=== PATIENT | female | born 1970 | race African-American/Black ===

== ENCOUNTER 2023-03-02 01:18 | Observation (INO) ==
--- NOTE | 2023-03-02 01:36 | DR.HEADACH ---
HPI Time Seen Time Seen by Provider: 03/02/23 01:36 Complaint/Symptoms Chief Complaint Doctors Comments: Patient states that she cooked yesterday for her grandchildren and took a nap in the evening.Patient does not recall what time she began her nap.Patient awoke and had slurred speech.She asked her son to call the ambulance.Patient had h/o covid-19 1 week ago. She presents with headache that generalized and aching.Patient states that she had to hold on to objects in her home to walk after she awoke and her hands were shaking. Patient denies: nausea,vomiting,chest pain,back pain abdominal pain,extremity paresthesias. PMH PMH Past Medical History: Asthma, Hypertension, Seizures and Sleep Apnea Past Surgical History: No Surgical History: No History Family History Family Medical History: Cancer and Hypertension Social History Do you use any recreational Drugs:: No ROS Review of Systems Constitutional: negative Fever Eyes: No Symptoms Reported ENTM: No Symptoms Reported Respiratoy: No Symptoms Reported Cardiovascular: negative Syncope Gastrointestinal/Abdominal: No Symptoms Reported Genitourinary: No Symptoms Reported Neurological: Headache Musculoskeletal: No Symptoms Reported Integumentary: No Symptoms Reported Hematologic/Lymphatic: No Symptoms Reported Endocrine: No Symptoms Reported Psychiatric: No Symptoms Reported All Other Systems: Reviewed and Negative PE Vital Signs Vitals: Temperature 98.1 F Pulse Rate [Bilateral Radial] 84 Pulse Rate 71 Respiratory Rate 20 Blood Pressure [Left Arm] 150/83 Blood Pressure 154/77 O2 Sat by Pulse Oximetry 97 General Limitations: No Limitations General Appearance: Alert, In No Apparent Distress and Obese Head Head Exam: Normal Inspection Eyes Eye exam: Normal Appearance, PERRL and EOMI Eyelids: Normal Inspection: Bilateral Pupils: Regular, Round: Bilateral Sclera/Conjunctival: Normal Inspection: Bilateral ENT ENT Exam: Normal Exam External Ear Exam: Normal External Inspection TM/Canal Exam: Bilateral: Normal Nose Exam: Normal Nose Exam Mouth Exam: Normal Inspection Teeth Exam: Normal Inspection Throat Exam: Normal Inspection Neck Neck Exam: Normal Inspection and Trachea Midline; negative Tenderness Chest Chest Inspection: Normal Inspection and Symmetric Chest Wall Rise Respiratory Respiratory Exam: Normal Lung Sounds Bilat; negative Accessory Muscle Use Respiratory Exam: Bilateral: Clear to Auscultation Cardiovascular Cardiovascular Exam: Regular Rate and Normal Rhythm Abdominal Exam Abdominal Exam: Normal Inspection and Normal Bowel Sounds Extremities Extremities Exam: Normal Inspection Back Back Exam: Normal Inspection Neurologic Neurological Exam: Alert, Oriented X3, CN II-XII Intact and Motor Sensory Deficit (WEAKNESS BLE (4/5)) Psychiatric Psychiatric Exam: Normal Affect and Normal Mood Skin Skin Exam: Warm, Dry, Intact and Normal Color MDM Differential Diagnosis Differential Diagnosis: Considerations may include:: Closed Head Injury, CVA and Intracerebral Hemorrhage Differential Diagnosis Comment: TIA,Infection,Pnuemonia,electrolyte abnormality COURSE Treatment Treatment: Patient was brought to a monitored room. Iv access was initiated and patioent was sent to Head CT w/o contrast.( 1:36) NIH stroke scale was 4 initially secondary to weakness in Bilateral lower extremities. Head CT w/o contrast di not reveal intracranial bleed.It did reveal Rt maxillary sinusitis. Rocephin 2g iv has been ordered. 04: 15 am Repeat NIH stroke scale evlaution revealed score of o. Informed patient of her test results. Patient had a pos d-dimer anc Chest CTA did not reveal PE or other acute process.Patient has stable CBC and stable CMP. Troponin # 1 is 5.2/EKG #1 revealed NSR with nonspecific t wave changes. Troponin #2 6.2/EKG #2 revealed NSR. 05:[address] Blake who will admit patient to his service to treat for :TIA/Rt Maxillary Sinusitis/ Acute hypoxemia. Patient's ABG revealed PH 7.39/PC02 60.0/ P02 47.0/02 sat 82.0 ( on RA). Patient states that she has a h/o asthma and sleep apnea. She was diagnosed with sleep apnea 2 yrs ago and was not able to get the supplies to use at night. Patient has been stable in the ED. [facility]OR Labs Reviewed Laboratory Results Reviewed?: Yes Result Diagrams: 03/02/23 01:58 03/02/23 01:58 Laboratory: WBC 8.2 X10^3/uL (3.6-10.0) 03/02/23 01:58 RBC 4.70 X10^6/uL (3.5-5.4) 03/02/23 01:58 Hgb 13.9 g/dL (12.0-16.0) 03/02/23 01:58 Hct 41.5 % (36.0-47.0) 03/02/23 01:58 MCV 88.4 fL (80.0-100.0) 03/02/23 01:58 MCH 29.7 pg (27.0-34.0) 03/02/23 01:58 MCHC 33.6 g/dL (33.0-35.0) 03/02/23 01:58 RDW 13.4 % (11.6-16.5) 03/02/23 01:58 Plt Count 288 X10^3/uL (150.0-450.0) 03/02/23 01:58 MPV 7.5 fL (7.4-11.0) 03/02/23 01:58 Neut % (Auto) 52.5 % (42.0-75.0) 03/02/23 01:58 Lymph % (Auto) 38.6 % (21.0-51.0) 03/02/23 01:58 [place] % (Auto) 6.8 % (0.0-13.0) 03/02/23 01:58 Eos % (Auto) 1.3 % (0.9-2.9) 03/02/23 01:58 Baso % (Auto) 0.8 % (0.2-1.0) 03/02/23 01:58 Neut # (Auto) 4.3 x10^3/uL (2.2-4.8) 03/02/23 01:58 Lymph # (Auto) 3.2 X10^3/uL (1.3-2.9) H 03/02/23 01:58 [place] # (Auto) 0.6 x10^3/uL (0.3-0.8) 03/02/23 01:58 Eos # (Auto) 0.1 x10^3/uL (0.0-0.2) 03/02/23 01:58 Baso # (Auto) 0.1 X10^3/uL (0.0-0.1) 03/02/23 01:58 Absolute Nucleated RBC 0.0 /100WBC 03/02/23 01:58 PT 12.3 SECONDS (11.8-14.3) 03/02/23 01:58 INR Target Range - 03/02/23 01:58 INR 0.93 (0.8-1.3) 03/02/23 01:58 APTT 26.6 SECONDS (22.9-36.5) 03/02/23 01:58 PTT Comment - 03/02/23 01:58 D-Dimer 1.57 ug/ml (0.0-0.57) H 03/02/23 01:58 Sample Site R rad 03/02/23 02:11 ABG pH 7.390 (7.35-7.45) 03/02/23 02:11 ABG pCO2 60.0 mmHg (35.0-45.0) H* 03/02/23 02:11 ABG pO2 47.0 mmHg (80.0-100.0) L* 03/02/23 02:11 ABG HCO3 36.3 mmol/L (22-26) H* 03/02/23 02:11 ABG O2 Saturation 82.0 % (90-100) L* 03/02/23 02:11 ABG Base Excess 9.3 mmol/L (-2.0-2.0) H 03/02/23 02:11 Jorje Test Pos 03/02/23 02:11 A-a Gradient 28.0 mmHg 03/02/23 02:11 FiO2 21.0 03/02/23 02:11 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/02/23 02:11 Sodium 141 mmol/L (136-145) 03/02/23 01:58 Corrected Sodium 142 mmol/L (136-145) 03/02/23 01:58 Potassium 3.6 mmol/L (3.5-5.1) 03/02/23 01:58 Chloride 101 mmol/L (98-107) 03/02/23 01:58 Carbon Dioxide 37.2 mmol/L (21-32) H 03/02/23 01:58 BUN 11 mg/dL (7-18) 03/02/23 01:58 Creatinine 0.89 mg/dL (0.55-1.02) 03/02/23 01:58 Est GFR (MDRD) Af Amer > 60 (>60) 03/02/23 01:58 Est GFR (MDRD) Non-Af > 60 (>60) 03/02/23 01:58 Glucose 154 mg/dL (65-99) H 03/02/23 01:58 Calcium 8.5 mg/dL (8.5-10.1) 03/02/23 01:58 Corrected Calcium TNP 03/02/23 01:58 Total Bilirubin 0.30 mg/dL (0.2-1.0) 03/02/23 01:58 AST 15 Units/L (15-37) 03/02/23 01:58 ALT 21 Units/L (12-78) 03/02/23 01:58 Alkaline Phosphatase 93 Units/L (46-116) 03/02/23 01:58 Creatine Kinase 136 Units/L (26-192) 03/02/23 03:54 Troponin I High Sens 6.2 ng/L (4.0-60.0) 03/02/23 03:54 B-Natriuretic Peptide < 5.0 pg/mL (0-79) 03/02/23 01:58 Total Protein 8.3 g/dL (6.4-8.2) H 03/02/23 01:58 Albumin 3.4 g/dL (3.4-5.0) 03/02/23 01:58 Globulin 4.9 g/dL (2.5-4.5) H 03/02/23 01:58 Albumin/Globulin Ratio 0.7 Ratio (1.1-2.1) L 03/02/23 01:58 Specimen Type Clean catch urine 03/02/23 02:54 Urine Color Yellow (YELLOW) 03/02/23 02:54 Urine Appearance Clear (CLEAR) 03/02/23 02:54 Urine pH 6.0 (5.0 - 8.0) 03/02/23 02:54 Ur Specific [place] 1.025 (1.000-1.030) 03/02/23 02:54 Urine Protein 1+ (NEGATIVE) 03/02/23 02:54 Urine Glucose (UA) Negative (NEGATIVE) 03/02/23 02:54 Urine Ketones Negative (NEGATIVE) 03/02/23 02:54 Urine Blood 1+ (NEGATIVE) 03/02/23 02:54 Urine Nitrite Negative (NEGATIVE) 03/02/23 02:54 Urine Bilirubin Negative (NEGATIVE) 03/02/23 02:54 Urine Urobilinogen Normal (NORMAL) 03/02/23 02:54 Ur Leukocyte Esterase 1+ (NEGATIVE) 03/02/23 02:54 Urine RBC 0-2 /HPF (0-3) 03/02/23 02:54 Urine WBC 0-2 /HPF (0-5) 03/02/23 02:54 Ur Squamous Epith Cells Few /HPF (NEGATIVE) 03/02/23 02:54 Urine Bacteria Trace /HPF (NEGATIVE) 03/02/23 02:54 Ur Culture Indicated? No/not indicated 03/02/23 02:54 Urine Opiates Screen Negative (NEG=<300) 03/02/23 02:54 Urine Methadone Screen Negative (NEG=<300) 03/02/23 02:54 Ur Barbiturates Screen Negative (NEG=<200) 03/02/23 02:54 Ur Phencyclidine Scrn Negative (NEG=<25) 03/02/23 02:54 Ur Amphetamines Screen Negative (NEG=<1000) 03/02/23 02:54 U Benzodiazepines Scrn Negative (NEG=<200) 03/02/23 02:54 Urine Cocaine Screen Negative (NEG=<300) 03/02/23 02:54 U Marijuana (THC) Screen Positive (NEG=<50) A 03/02/23 02:54 SARS-CoV-2 (PCR) Negative (NEGATIVE) 03/02/23 01:41 Influenza Type A (PCR) Negative (NEGATIVE) 03/02/23 01:41 Influenza Type B (PCR) Negative (NEGATIVE) 03/02/23 01:41 RSV (PCR) Negative (NEGATIVE) 03/02/23 01:41 XRAY XRAY Interpreted by: Radiologist X-ray Results: PROCEDURE: CT Head without Contrast . HISTORY: Slurred speech and lower extremity weakness. TECHNIQUE: Axial images were performed through the head without the administration of IV contrast with multiplanar reformations . Dose reduction techniques including Automated Exposure Control (AEC) and adjustment of mA and kV were utilized . COMPARISON: None . TECHNICAL QUALITY: Satisfactory . FINDINGS: Brain shows no mass, hemorrhage, or acute stroke. Ventricles are normal size for patient's age. No acute skull or scalp abnormality. Scattered [id number] inflammatory mucosal changes paranasal sinuses with air-fluid level right maxillary sinus. Clear mastoids. IMPRESSION: 1. Normal CT scan of the brain. 2. Sinusitis. Electronically signed by: Delmer Cortes (March 02, 2023 03:13:29) PROCEDURE: Chest X-ray 1 View . HISTORY: Hypoxia. TECHNIQUE: AP view . COMPARISON: None . TECHNICAL QUALITY: Satisfactory . FINDINGS: Heart size upper limits of normal. Mediastinum and hilar regions show no masses or lymphadenopathy . Normal central vascularity . No pulmonary consolidation, masses, pleural fluid, or pneumothorax . No acute bony abnormality . IMPRESSION: Heart size upper limits of normal with no other evidence of active disease. Electronically signed by: Delmer Cortes (March 02, 2023 02:32:20) PROCEDURE: CTA Chest . HISTORY: Dyspnea. TECHNIQUE: Axial images were performed through the chest with the administration of IV contrast with multiplanar reformations . 3D and MIPS reconstructions were performed and reviewed. Dose reduction techniques including Automated Exposure Control (AEC) and adjustment of mA and kV were utilized . COMPARISON: None . TECHNICAL QUALITY: Satisfactory . FINDINGS: Mild atherosclerosis thoracic aorta with tortuosity and no aneurysm or dissection. Limited opacification of the pulmonary arterial system with contrast with the main pulmonary artery measuring 178 Hounsfield units with no obvious central clot. Mediastinum and hilar regions show no masses or lymphadenopathy. Normal size heart with no pericardial fluid. No pulmonary consolidation, masses, or pleural fluid. Visualized upper abdomen shows previous cholecystectomy. No acute bony abnormality. IMPRESSION: 1. Limited opacification of the pulmonary arterial system with contrast with no obvious central clot. 2. No dissection. 3. No pulmonary consolidation. Electronically signed by: Delmer Cortes (March 02, 2023 04:48:31) EKG Compared to prior EKG Dated: 03/02/23 Rate: 79 Media: Normal Rhythm: NSR ST: Nonsp (Nonspecific T wave abnormality) Opioid Opioid Risk Tool Age ([place] if 16-45): No History of Preadolescent Sexual Abuse: No Total: 0 Total Score Risk Category: Low Risk Copyright: Zeb FELDER predicting aberrant behaviors Discharge Plan Diagnosis Discharge Problem: TIA (transient ischemic attack), Right maxillary sinusitis, Hypoxemia Discharge Plan Patient Disposition: ADMITTED INPATIENT Condition: Stable Prescriptions: No Action phenytoin sodium extended [Dilantin Extended] 100 mg capsule 100 mg PO BID hydrochlorothiazide 25 mg tablet 25 mg PO QDAY albuterol sulfate 90 mcg/actuation HFA aerosol inhaler 1 puff inhalation Q8H PRN (Reason: shortness of breath or wheezing) ibuprofen 800 MG tablet 800 mg PO DAILY PRN (Reason: Pain/Inflammation) Qty: 30 0RF Health Concerns: Post Hospitalization: new medications and changes needed to prevent readmission or further decline. Pt educated and given instructions on all concerns. Plan of Treatment: ADMIT OBSERVATION Orders to Discharge Patient Discharge Orders: Transfer (Routine); Ordered 03/02/23 Ordered By: Annita Quinn Follow ups/Referrals Follow ups/Referrals: NARCISO BENEDICT [Primary Care Provider] - 3 days ADDITIONAL NOTES Additional Notes Additional Notes: EKG #2: RATE 70, Media normal, Rhythm NSR
[2023-03-02 02:10] LABS: BASOPHILS # (AUTO) 0.1 X10^3/uL (0.0-0.1); BASOPHILS % (AUTO) 0.8 % (0.2-1.0); EOSINOPHILS # (AUTO) 0.1 x10^3/uL (0.0-0.2); EOSINOPHILS % (AUTO) 1.3 % (0.9-2.9); HEMATOCRIT 41.5 % (36.0-47.0); HEMOGLOBIN 13.9 g/dL (12.0-16.0); LYMPHOCYTES # (AUTO) 3.2 X10^3/uL (1.3-2.9); LYMPHOCYTES % (AUTO) 38.6 % (21.0-51.0); MEAN CORPUSCULAR HEMOGLOBIN 29.7 pg (27.0-34.0); MEAN CORPUSCULAR HGB CONC 33.6 g/dL (33.0-35.0); MEAN CORPUSCULAR VOLUME 88.4 fL (80.0-100.0); MEAN PLATELET VOLUME 7.5 fL (7.4-11.0); MONOCYTES # (AUTO) 0.6 x10^3/uL (0.3-0.8); MONOCYTES % (AUTO) 6.8 % (0.0-13.0); NEUTROPHILS # (AUTO) 4.3 x10^3/uL (2.2-4.8); NEUTROPHILS % (AUTO) 52.5 % (42.0-75.0); PLATELET COUNT 288 X10^3/uL (150.0-450.0); RED CELL DISTRIBUTION WIDTH 13.4 % (11.6-16.5); WHITE BLOOD COUNT 8.2 X10^3/uL (3.6-10.0)
[2023-03-02 02:17] LABS: ABG BASE EXCESS 9.3 mmol/L (-2.0-2.0)
[2023-03-02 02:19] LABS: ALANINE AMINOTRANSFERASE 21 Units/L (12-78); ALBUMIN 3.4 g/dL (3.4-5.0); ALKALINE PHOSPHATASE 93 Units/L (46-116); ASPARTATE AMINO TRANSFERASE 15 Units/L (15-37); BLOOD UREA NITROGEN 11 mg/dL (7-18); CALCIUM 8.5 mg/dL (8.5-10.1); CARBON DIOXIDE 37.2 mmol/L (21-32); CHLORIDE 101 mmol/L (98-107); COR NA(FOR HYPERGLY) 142 mmol/L (136-145); CREATININE 0.89 mg/dL (0.55-1.02); GLUCOSE 154 mg/dL (65-99); POTASSIUM 3.6 mmol/L (3.5-5.1); SODIUM 141 mmol/L (136-145); TOTAL PROTEIN 8.3 g/dL (6.4-8.2); eGFR NON BLACK RACES > 60 (>60)
[2023-03-02 02:19] LABS: ABG ALLEN TEST POS; ABG HCO3 36.3 mmol/L (22-26)
--- NOTE | 2023-03-02 02:33 | RAD ---
PROCEDURE: Chest X-ray 1 View .HISTORY: Hypoxia.TECHNIQUE: AP view .COMPARISON: None .TECHNICAL QUALITY: Satisfactory .FINDINGS:Heart size upper limits of normal.Mediastinum and hilar regions show no masses or lymphadenopathy .Normal central vascularity .No pulmonary consolidation, masses, pleural fluid, or pneumothorax .No acute bony abnormality .IMPRESSION:Heart size upper limits of normal with no other evidence of active disease.Electronically signed by: Delmer Cortes (March 02, 2023 02:32:20)
--- NOTE | 2023-03-02 02:44 | EKG ---
Test Reason : weakness Blood Pressure : */* mmHG Vent. Rate : 79 BPM Atrial Rate : 79 BPM P-R Int : 170 ms QRS Dur : 86 ms QT Int : 396 ms P-R-T Axes : 29 13 8 degrees QTc Int : 454 ms Normal sinus rhythm Minimal voltage criteria for LVH, may be normal variant ( R in aVL ) Nonspecific T wave abnormality Abnormal ECG No previous ECGs available Confirmed by George Danielson ([id number]) on 03/02/2023 7:42:26 PM Referred By: Confirmed By: George Danielson
[2023-03-02 02:52] LABS: INR 0.93 (0.8-1.3)
[2023-03-02 03:03] LABS: BILIRUBIN,URINE NEGATIVE (NEGATIVE); BLOOD/HEMOGLOBIN,URINE 1+ (NEGATIVE); GLUCOSE, URINE NEGATIVE (NEGATIVE); KETONES,URINE NEGATIVE (NEGATIVE); LEUKOCYTE ESTERASE ,URINE 1+ (NEGATIVE); NITRITES,URINE NEGATIVE (NEGATIVE); PROTEIN,URINE 1+ (NEGATIVE); UROBILINOGEN,URINE NORMAL (NORMAL)
[2023-03-02 03:12] LABS: APPEARANCE,URINE CLEAR (CLEAR); COLOR,URINE YELLOW (YELLOW)
[2023-03-02 03:13] LABS: BACTERIA,URINE TRACE /HPF (NEGATIVE); RBC,URINE 0-2 /HPF (0-3); SQUAMOUS EPITHELIAL CELL,UR FEW /HPF (NEGATIVE)
--- NOTE | 2023-03-02 03:14 | CT ---
PROCEDURE: CT Head without Contrast .HISTORY: Slurred speech and lower extremity weakness.TECHNIQUE: Axial images were performed through the head without the administration of IV contrast with multiplanar reformations . Dose reduction techniques including Automated Exposure Control (AEC) and adjustment of mA and kV were utilized .COMPARISON: None .TECHNICAL QUALITY: Satisfactory .FINDINGS:Brain shows no mass, hemorrhage, or acute stroke.Ventricles are normal size for patient's age.No acute skull or scalp abnormality.Scattered [id number] inflammatory mucosal changes paranasal sinuses with air-fluid level right maxillary sinus. Clear mastoids.IMPRESSION:1. Normal CT scan of the brain.2. Sinusitis.Electronically signed by: Delmer Cortes (March 02, 2023 03:13:29)
--- NOTE | 2023-03-02 03:38 | EKG ---
Test Reason : SHORTNESS OF BREATH Blood Pressure : */* mmHG Vent. Rate : 70 BPM Atrial Rate : 70 BPM P-R Int : 178 ms QRS Dur : 86 ms QT Int : 404 ms P-R-T Axes : 28 15 41 degrees QTc Int : 436 ms Normal sinus rhythm Normal ECG When compared with ECG of 02-MAR-2023 02:39, (Unconfirmed) Nonspecific T wave abnormality, improved in Inferior leads Nonspecific T wave abnormality, improved in Anterior leads Confirmed by George Danielson ([id number]) on 03/02/2023 7:42:09 PM Referred By: Confirmed By: George Danielson
--- NOTE | 2023-03-02 04:49 | CT ---
PROCEDURE: CTA Chest .HISTORY: Dyspnea.TECHNIQUE: Axial images were performed through the chest with the administration of IV contrast with multiplanar reformations . 3D and MIPS reconstructions were performed and reviewed. Dose reduction techniques including Automated Exposure Control (AEC) and adjustment of mA and kV were utilized .COMPARISON: None .TECHNICAL QUALITY: Satisfactory .FINDINGS:Mild atherosclerosis thoracic aorta with tortuosity and no aneurysm or dissection.Limited opacification of the pulmonary arterial system with contrast with the main pulmonary artery measuring 178 Hounsfield units with no obvious central clot.Mediastinum and hilar regions show no masses or lymphadenopathy.Normal size heart with no pericardial fluid.No pulmonary consolidation, masses, or pleural fluid.Visualized upper abdomen shows previous cholecystectomy.No acute bony abnormality.IMPRESSION:1. Limited opacification of the pulmonary arterial system with contrast with no obvious central clot.2. No dissection.3. No pulmonary consolidation.Electronically signed by: Delmer Cortes (March 02, 2023 04:48:31)
[2023-03-02] MEDS ORDERED: ROCEPHIN VIAL 2 GRAMS 2 G in NS 100 ML IV 100 ML IV SCH ×2 (06:53→08:00)
[2023-03-02] MEDS ORDERED: ROCEPHIN VIAL 2 GRAMS ONE (06:55)
[2023-03-02] MEDS ORDERED: NS 100 ML IV 200 ML ONE (06:56)
[2023-03-02] MEDS ORDERED: NS 250 ML IV 250 ML IV ONE (07:02)
[2023-03-02] MEDS ORDERED: NS 100 ML IV 100 ML IV ONE (07:13)
[2023-03-02] MEDS ORDERED: MOTRIN TAB 800 MG PO PRN (08:00)
[2023-03-02] MEDS ORDERED: VENTOLIN or PROAIR HFA IN PRN (08:00)
[2023-03-02] MEDS: DILANTIN CAP 100 MG EXT REL PO SCH ×2 (08:59→20:41)
[2023-03-02] MEDS: HYDROCHLOROTHIAZIDE 25 MG TAB PO SCH (08:59)
[2023-03-02] MEDS ORDERED: K-DUR TAB 20 MEQ PO PRN (10:25)
[2023-03-02] MEDS ORDERED: K-RIDER 10 MEQ/NS 100 ML 10 MEQ/100 ML BAG IV PRN (10:25)
[2023-03-02] MEDS ORDERED: POTASSIUM CHL 60 MEQ/NS 0.45% 500 ML IV PRN (10:25)
[2023-03-02] MEDS ORDERED: KLOR-CON PO PRN (10:25)
[2023-03-02] MEDS ORDERED: MICRO K EXTEN CAP 10 MEQ PO PRN (10:25)
[2023-03-02] MEDS ORDERED: POTASSIUM CHL 40 MEQ/NS 0.45% 500 ML IV PRN (10:25)
[2023-03-02] MEDS ORDERED: POTASSIUM CHLORIDE LIQ 20 MEQ UDC PO PRN (10:25)
[2023-03-02] MEDS: MAGNESIUM SULFATE 1 GRAM/100 mL PREMIX 1 G/100 ML BAG IV PRN ×2 (11:20→19:00)
--- NOTE | 2023-03-02 13:42 | DR.H&P ---
H&P - History & Physical for Day of: H&P Date: 03/02/23 - Chief Complaint Chief Complaint: ONSET SLURRED SPEECH, IMPAIRED GAIT - History of Present Illness History of Present Illness: Patient states that she cooked yesterday for her grandchildren and took a nap in the evening.Patient does not recall what time she began her nap.Patient awoke and had slurred speech.She asked her son to call the ambulance.Patient had h/o covid-19 1 week ago. She presents with headache that generalized and aching.Patient states that she had to hold on to objects in her home to walk after she awoke and her hands were shaking. Patient denies: nausea,vomiting,chest pain,back pain abdominal pain,extremity paresthesias. - Past Medical History Past Medical History: Hypertension, Seizures, Asthma, Sleep Apnea - Past Surgical History Surgical History: No History - Family History Family Medical History: Diabetes Mellitus, [place], Hypertension - Social History Does patient currently use any type of tobacco product: Yes Have you used tobacco products in the last 12 months: Yes Type of Tobacco Use: Cigars Does any household member use tobacco: Yes Alcohol Use: Occasionally Drug Use: None - Medications Home Medications: lisinopril Allergy (Unknown, Verified 10/09/22 14:39) Swollen lips - Review of Systems Constitutional: Weakness Eyes: No Symptoms Reported ENT: Nose Congestion Respiratory: No Symptoms Reported Cardiovascular: Edema Gastrointestinal: No Symptoms Reported Genitourinary: No Symptoms Reported Musculoskeletal: No Symptoms Reported Skin: No Symptoms Reported Neurological: Change in Speech - Physical Exam Vital Signs: Temperature 97.4 F Pulse Rate [Bilateral Radial] 82 Pulse Rate 71 Respiratory Rate 20 Blood Pressure [Left Arm] 144/65 Blood Pressure 154/77 O2 Sat by Pulse Oximetry 94 Oriented: Normal Eyes: Normal Ear: Normal Nose: Normal Throat: Exudate Respiratory: RLL Diminished, LLL Diminished Cardiovascular: Normal, Edema : Normal Auscultation: Bowel Sounds: Normal Palpation: Normal Tenderness: Normal Skin: Normal Musculoskeletal: negative: Motor Deficit, Sensory Deficit Psychiatric: Normal Mood Description: Calm Speech Pattern: Clear, Appropriate. negative: Slurred - Assessment/Plan (1) TIA (transient ischemic attack) Status: Acute Plan: ADMIT, CT HEAD ON ADMISSION. ASPIRIN, STATIN AND BP CONTROL STARTED. CAROTID US AND MRI BRAIN ORDERED FOR AM. FLP IN THE AM. BP CONTROL AND CARDIAC MONITORING. PHYSICAL THERAPY EVALUATION (2) Right maxillary sinusitis Status: Acute (3) Hypertension Status: None (4) Morbid obesity Status: Acute - Allergies Allergies/Adverse Reactions: Allergies Allergy/AdvReac Type Severity Reaction Status Date / Time lisinopril Allergy Unknown Swollen Verified 10/09/22 14:39 lips
[2023-03-02] MEDS: ROCEPHIN VIAL 1 GRAM 1 G in NS 100 ML IV 100 ML IV SCH (14:42)
[2023-03-02] MEDS: CLARITIN PO SCH (15:00)
[2023-03-02] MEDS: ASPIRIN EC 81 MG PO SCH (15:00)
[2023-03-02] MEDS: COZAAR PO SCH (15:00)
[2023-03-02] MEDS: CRESTOR TAB 10 MG PO SCH (20:41)
[2023-03-03] MEDS ORDERED: NS 250 ML IV 250 ML IV ONE (02:42)
--- NOTE | 2023-03-03 05:32 | EKG ---
Test Reason : TIA Blood Pressure : */* mmHG Vent. Rate : 79 BPM Atrial Rate : 79 BPM P-R Int : 166 ms QRS Dur : 82 ms QT Int : 420 ms P-R-T Axes : 35 26 56 degrees QTc Int : 481 ms Normal sinus rhythm Prolonged QT Abnormal ECG When compared with ECG of 02-MAR-2023 03:36, No significant change was found Confirmed by George Danielson ([id number]) on 03/04/2023 8:25:38 AM Referred By: Confirmed By: George Danielson
[2023-03-03 06:00] LABS: BASOPHILS # (AUTO) 0.1 X10^3/uL (0.0-0.1); BASOPHILS % (AUTO) 1.3 % (0.2-1.0); EOSINOPHILS # (AUTO) 0.2 x10^3/uL (0.0-0.2); EOSINOPHILS % (AUTO) 2.5 % (0.9-2.9); HEMATOCRIT 37.1 % (36.0-47.0); HEMOGLOBIN 12.5 g/dL (12.0-16.0); LYMPHOCYTES # (AUTO) 2.5 X10^3/uL (1.3-2.9); LYMPHOCYTES % (AUTO) 35.7 % (21.0-51.0); MEAN CORPUSCULAR HGB CONC 33.8 g/dL (33.0-35.0); MEAN CORPUSCULAR VOLUME 88.6 fL (80.0-100.0); MEAN PLATELET VOLUME 8.6 fL (7.4-11.0); MONOCYTES # (AUTO) 0.6 x10^3/uL (0.3-0.8); MONOCYTES % (AUTO) 8.1 % (0.0-13.0); NEUTROPHILS # (AUTO) 3.7 x10^3/uL (2.2-4.8); NEUTROPHILS % (AUTO) 52.4 % (42.0-75.0); PLATELET COUNT 238 X10^3/uL (150.0-450.0); RED BLOOD COUNT 4.19 X10^6/uL (3.5-5.4); RED CELL DISTRIBUTION WIDTH 13.2 % (11.6-16.5); WHITE BLOOD COUNT 7.1 X10^3/uL (3.6-10.0)
[2023-03-03 06:15] LABS: ALANINE AMINOTRANSFERASE 19 Units/L (12-78); ALBUMIN 2.8 g/dL (3.4-5.0); ALKALINE PHOSPHATASE 77 Units/L (46-116); ASPARTATE AMINO TRANSFERASE 11 Units/L (15-37); BLOOD UREA NITROGEN 13 mg/dL (7-18); CALCIUM 8.2 mg/dL (8.5-10.1); CARBON DIOXIDE 34.1 mmol/L (21-32); CHLORIDE 105 mmol/L (98-107); CHOL/HDL RATIO 3.7 (0.0-5.0); CHOLESTEROL 194 mg/dL (0-200); COR CA(FOR HYPOALB) 9.2 mg/dL (8.5-10.1); CREATININE 0.77 mg/dL (0.55-1.02); GLUCOSE 110 mg/dL (65-99); HDL CHOLESTEROL 52 mg/dL (40-60); POTASSIUM 4.2 mmol/L (3.5-5.1); SODIUM 141 mmol/L (136-145); TRIGLYCERIDES 79 mg/dL (0-150); eGFR NON BLACK RACES > 60 (>60)
[2023-03-03] MEDS: ROCEPHIN VIAL 1 GRAM 1 G in NS 100 ML IV 100 ML IV SCH (09:14)
[2023-03-03] MEDS: CLARITIN PO SCH (09:15)
[2023-03-03] MEDS: DILANTIN CAP 100 MG EXT REL PO SCH ×2 (09:15→20:35)
[2023-03-03] MEDS: HYDROCHLOROTHIAZIDE 25 MG TAB PO SCH (09:15)
[2023-03-03] MEDS: ASPIRIN EC 81 MG PO SCH (09:15)
[2023-03-03] MEDS: COZAAR PO SCH (09:15)
[2023-03-03] MEDS: LOVENOX INJ 40 MG SYR SC SCH (09:15)
[2023-03-03 14:19] LABS: ABG BASE EXCESS 11.6 mmol/L (-2.0-2.0)
[2023-03-03 14:20] LABS: ABG ALLEN TEST POS; ABG HCO3 38.3 mmol/L (22-26)
[2023-03-03 14:40] VITALS: BMI 51.0
--- NOTE | 2023-03-03 20:23 | VAS ---
HISTORYTIASTUDYCAROTID USCOMPARISONNo relevant prior studies available.TECHNIQUEDuplex ultrasound scan of the bilateral carotid and vertebral arteries combining grayscale, color Doppler and spectral waveform analysis.FINDINGSRight common carotid artery: Unremarkable. No occlusion or stenosis. Waveforms are normal.Peak systolic velocity in the proximal CCA is 102.5 cm/sec.Right internal carotid artery: Unremarkable. No occlusion or stenosis. Waveforms are normal. Peak systolic velocity in the proximal ICA is 110.21 cm/sec.Right ICA/CCA ratio: Within normal limits; 1.07.Right external carotid artery: No significant stenosis in the origin.Right vertebral artery: Unremarkable. Antegrade flow.Left common carotid artery: Unremarkable. No occlusion or stenosis. Waveforms are normal. Peak systolic velocity in the proximal CCA is 108.75 cm/sec.Left internal carotid artery: Unremarkable. No occlusion or stenosis. Waveforms are normal. Peak systolic velocity in the mid ICA is 115.4 cm/sec.Left ICA/CCA ratio: Within normal limits; 1.06.Left external carotid artery: No stenosis in the origin.Left vertebral artery: Unremarkable. Antegrade flow.IMPRESSIONNo clinically significant diameter stenosis in the internal carotid arteries based on flow velocity criteria.REFERENCES:SRU CRITERIA. The degree of internal carotid artery stenosis is based on criteria defined by the Society of Radiologists in Ultrasound (SRU).--Normal is no stenosis (ICA PSV is <125 cm/sec, ICA/CCA PSV ratio <2.0).--Mild is less than 50% stenosis (ICA PSV is <125 cm/sec, plaque/intimal thickening visible, ICA/CCA PSV ratio <2.0 and ICA EDV <40 cm/sec).--Moderate is 50-69% stenosis (ICA PSV is 125-230 cm/sec and plaque is visible. ICA/CCA PSV ratio of 2.0-4.0. ICA EDV is 40-100 cm/sec).--Severe is greater than 69% stenosis to near occlusion (ICA PSV is >230 cm/sec, visible plaque/luminal narrowing, ICA/CCA >4.0, ICA EDV >100 cm/sec).--Near occlusion is a markedly narrowed lumen.--Total occlusion is no detectable patent lumen.Electronically signed by: Navin Boswell (March 03, 2023 20:22:10)
[2023-03-03] MEDS: CRESTOR TAB 10 MG PO SCH (20:35)
[2023-03-03] MEDS: MAGNESIUM SULFATE 1 GRAM/100 mL PREMIX 1 G/100 ML BAG IV PRN ×2 (20:36→22:13)
--- NOTE | 2023-03-04 04:46 | RAD ---
PROCEDURE: Chest X-ray 1 View .HISTORY: COPD .TECHNIQUE: AP portable done at 4:18 a.m..COMPARISON: 03/02/2023.TECHNICAL QUALITY: Satisfactory .FINDINGS:Normal size heart .Mediastinum and hilar regions show no masses or lymphadenopathy .Normal central vascularity .No pulmonary consolidation, masses, pleural fluid, or pneumothorax .No acute bony abnormality .IMPRESSION:No active cardiopulmonary disease .Electronically signed by: Delmer Cortes (March 04, 2023 04:45:12)
[2023-03-04 06:17] LABS: BASOPHILS # (AUTO) 0.1 X10^3/uL (0.0-0.1); BASOPHILS % (AUTO) 1.2 % (0.2-1.0); EOSINOPHILS # (AUTO) 0.2 x10^3/uL (0.0-0.2); EOSINOPHILS % (AUTO) 2.7 % (0.9-2.9); HEMATOCRIT 38.7 % (36.0-47.0); LYMPHOCYTES # (AUTO) 2.3 X10^3/uL (1.3-2.9); LYMPHOCYTES % (AUTO) 35.2 % (21.0-51.0); MEAN CORPUSCULAR HEMOGLOBIN 30.1 pg (27.0-34.0); MEAN CORPUSCULAR HGB CONC 33.7 g/dL (33.0-35.0); MEAN CORPUSCULAR VOLUME 89.4 fL (80.0-100.0); MEAN PLATELET VOLUME 8.5 fL (7.4-11.0); MONOCYTES # (AUTO) 0.5 x10^3/uL (0.3-0.8); MONOCYTES % (AUTO) 7.3 % (0.0-13.0); NEUTROPHILS # (AUTO) 3.5 x10^3/uL (2.2-4.8); NEUTROPHILS % (AUTO) 53.6 % (42.0-75.0); PLATELET COUNT 227 X10^3/uL (150.0-450.0); RED BLOOD COUNT 4.33 X10^6/uL (3.5-5.4); RED CELL DISTRIBUTION WIDTH 12.9 % (11.6-16.5); WHITE BLOOD COUNT 6.6 X10^3/uL (3.6-10.0)
[2023-03-04 06:35] LABS: ALANINE AMINOTRANSFERASE 13 Units/L (12-78); ALBUMIN 2.8 g/dL (3.4-5.0); ALKALINE PHOSPHATASE 81 Units/L (46-116); ASPARTATE AMINO TRANSFERASE 21 Units/L (15-37); BLOOD UREA NITROGEN 14 mg/dL (7-18); CALCIUM 8.6 mg/dL (8.5-10.1); CARBON DIOXIDE 34.1 mmol/L (21-32); CHLORIDE 102 mmol/L (98-107); COR CA(FOR HYPOALB) 9.6 mg/dL (8.5-10.1); CREATININE 0.66 mg/dL (0.55-1.02); GLUCOSE 102 mg/dL (65-99); SODIUM 139 mmol/L (136-145); TOTAL PROTEIN 7.3 g/dL (6.4-8.2); eGFR NON BLACK RACES > 60 (>60)
[2023-03-04] MEDS: ASPIRIN EC 81 MG PO SCH (08:19)
[2023-03-04] MEDS: COZAAR PO SCH (08:19)
[2023-03-04] MEDS: ROCEPHIN VIAL 1 GRAM 1 G in NS 100 ML IV 100 ML IV SCH (08:19)
[2023-03-04] MEDS: LOVENOX INJ 40 MG SYR SC SCH (08:19)
[2023-03-04] MEDS: CLARITIN PO SCH (08:20)
[2023-03-04] MEDS: DILANTIN CAP 100 MG EXT REL PO SCH (08:20)
[2023-03-04] MEDS: HYDROCHLOROTHIAZIDE 25 MG TAB PO SCH (08:20)
[2023-03-04 09:00] VITALS: BP 115/85; PULSE 93; TEMP 97.6; O2SAT 93
== END 2023-03-04 10:40 | disposition home or self-care (01) ==
LOC: MED/SURG 01:18 → ER 01:18 → MED/SURG 07:46
PROVIDERS: ADMIT Internal Medicine; ATTEND Internal Medicine
DX: F12.90 Cannabis use, unspecified, uncomplicated; I10 Essential (primary) hypertension; J01.00 Acute maxillary sinusitis, unspecified; R79.1 Abnormal coagulation profile; G45.8 Other transient cerebral ischemic attacks and related syndromes; Z20.822 Contact with and (suspected) exposure to COVID-19; J44.9 Chronic obstructive pulmonary disease, unspecified; Z86.16 Personal history of COVID-19; E66.01 Morbid (severe) obesity due to excess calories; R51.9 Headache, unspecified; R47.81 Slurred speech